=== PATIENT | female | born 1965 | race African-American/Black ===

== ENCOUNTER 2020-05-31 14:23 | Inpatient (IN) | payer MEDICAID ==
[~2020-05-31] VITALS: Ht 165.1 cm; Wt 110.9 kg
[~2020-05-31 14:23] MED LIST: FOLI-43 PO; HYDROCLOROTHIAZIDE PO; IBUP-779 PO; LISI10TA5 PO; NAP5EC PO; [UNRECOGNIZED DRUG - CODE]
[2020-05-31] MEDS ORDERED: ACETAMINOPHEN 325MG TABLET PO STA (14:58)
[2020-05-31 15:41] LABS: BASOPHILS % 0.4 % (0.0-2.0); EOSINOPHILS % 0.2 % (0.0-5.0); HEMATOCRIT. 42.6 % (36.0-48.0); HEMOGLOBIN. 14.6 g/dL (12.0-16.0); LYMPHOCYTES % 20.6 % (20.0-50.0); MEAN CORPUSCULAR HEMOGLOBIN 30.5 pg (28.0-32.0); MEAN CORPUSCULAR VOLUME 89.2 fL (81.0-99.0); MEAN PLATELET VOLUME 9.3 fl (7.4-10.4); MONOCYTES % 7.2 % (2.0-8.0); NEUTROPHILS % 71.6 % (40.0-76.0); PLATELET 207 x1000/uL (130-400); RED BLOOD CELL COUNT 4.77 mill/uL (4.2-5.4); RED CELL DISTRIBUTION WIDTH 13.9 % (11.6-14.6)
[2020-05-31 15:52] LABS: CHLORIDE 104 mEq/L (98-107)
[2020-05-31] MEDS ORDERED: ENOXAPARIN 100MG/ML SYR SUBCUT ONE (16:00)
[2020-05-31] MEDS ORDERED: PIPERACILLIN/TAZ 3.375G PREMIX 50 ML IV ONE (16:00)
[2020-05-31 16:02] LABS: D-DIMER 0.6 mg/L FEU (<0.50); PROTHROMBIN TIME 10.7 sec (9.6-11.0)
[2020-05-31] MEDS ORDERED: POTASSIUM CHLORIDE 20MEQ TABLET SR PO ONE (17:00)
[2020-05-31] MEDS ORDERED: AZITHROMYCIN 500 MG TABLET PO NR (19:15)
[2020-05-31] MEDS ORDERED: CEFTRIAXONE 1 G PREMIX 50 ML IV SCH (19:15)
[2020-05-31] MEDS ORDERED: ONDANSETRON HCL 4MG/2ML INJ IV PRN (19:15)
[2020-05-31] MEDS ORDERED: BENZONATATE 100MG CAPSULE PO PRN (19:15)
[2020-05-31] MEDS: DEXAMETHASONE 4MG TABLET PO SCH (20:00)
[2020-05-31 21:22] VITALS: BP 161/108
[2020-05-31 21:25] VITALS: BP 148/93
[2020-05-31] MEDS ORDERED: IOHEXOL-350 100 ML BOTTLE ONE (23:21)
[2020-06-01 00:05] VITALS: BP 138/86
[2020-06-01 04:00] VITALS: BP 148/93
[2020-06-01] MEDS: ACETAMINOPHEN 325MG TABLET PO PRN ×2 (05:29→20:22)
[2020-06-01] MEDS ORDERED: ENOXAPARIN 120MG/0.8ML SYR SUBCUT SCH (06:00)
[2020-06-01 08:00] VITALS: BP 166/98
[2020-06-01] MEDS: DEXAMETHASONE 4MG TABLET PO SCH (08:39)
[2020-06-01] MEDS: AZITHROMYCIN 250 MG TABLET PO SCH (08:39)
[2020-06-01] MEDS: CLONIDINE 0.1MG TABLET PO PRN (09:18)
[2020-06-01 12:00] VITALS: BP 118/66
[2020-06-01] MEDS: CEFTRIAXONE 1,000 MG in DEXTROSE 5% WATER 50 ML IV SCH (12:41)
[2020-06-01 16:00] VITALS: BP 140/89
[2020-06-01] MEDS: AMLODIPINE 10MG TABLET PO SCH (18:19)
[2020-06-01 20:00] VITALS: BP 131/77
[2020-06-01] MEDS: ENOXAPARIN 100MG/ML SYR SUBCUT SCH (20:22)
[2020-06-02] VITALS: BP 98/72
[2020-06-02 04:00] VITALS: BP 114/62
[2020-06-02 08:00] VITALS: BP 100/51
[2020-06-02] MEDS: AZITHROMYCIN 250 MG TABLET PO SCH (08:24)
[2020-06-02] MEDS: DEXAMETHASONE 4MG TABLET PO SCH (08:24)
[2020-06-02] MEDS: CEFTRIAXONE 1,000 MG in DEXTROSE 5% WATER 50 ML IV SCH (08:24)
[2020-06-02] MEDS: ENOXAPARIN 100MG/ML SYR SUBCUT SCH ×2 (08:24→21:34)
[2020-06-02] MEDS: AMLODIPINE 10MG TABLET PO SCH (09:00)
[2020-06-02 12:00] VITALS: BP 119/69
[2020-06-02 16:00] VITALS: BP_SYST 107; BP_SYST 167; BP_DIAS 53
[2020-06-02] MEDS: CLONIDINE 0.1MG TABLET PO PRN (17:15)
[2020-06-02 20:00] VITALS: BP 124/75
[2020-06-02 20:36] LABS: BASOPHILS % 0.1 % (0.0-2.0); HEMATOCRIT. 41.9 % (36.0-48.0); HEMOGLOBIN. 14.1 g/dL (12.0-16.0); LYMPHOCYTES % 9.6 % (20.0-50.0); MEAN CORPUSCULAR HEMOGLOBIN 30.3 pg (28.0-32.0); MEAN CORPUSCULAR VOLUME 90.1 fL (81.0-99.0); MEAN PLATELET VOLUME 9.5 fl (7.4-10.4); MONOCYTES % 4.3 % (2.0-8.0); PLATELET 314 x1000/uL (130-400); RED BLOOD CELL COUNT 4.65 mill/uL (4.2-5.4); RED CELL DISTRIBUTION WIDTH 13.7 % (11.6-14.6)
[2020-06-02 20:42] LABS: CHLORIDE 103 mEq/L (98-107)
[2020-06-03] VITALS: BP 120/63
[2020-06-03 04:00] VITALS: BP 141/76
[2020-06-03 08:00] VITALS: BP 129/73
[2020-06-03] MEDS: AZITHROMYCIN 250 MG TABLET PO SCH (08:26)
[2020-06-03] MEDS: CEFTRIAXONE 1,000 MG in DEXTROSE 5% WATER 50 ML IV SCH (08:26)
[2020-06-03] MEDS: ENOXAPARIN 100MG/ML SYR SUBCUT SCH ×2 (08:26→21:00)
[2020-06-03] MEDS: DEXAMETHASONE 4MG TABLET PO SCH (08:26)
[2020-06-03] MEDS: AMLODIPINE 5MG TABLET PO SCH (08:26)
[2020-06-03 12:00] VITALS: BP 130/88
[2020-06-03 16:00] VITALS: BP 115/61
[2020-06-03 20:00] VITALS: BP 110/58
[2020-06-04] VITALS (7 sets, daily range): BP systolic 92–141; BP diastolic 52–82
[2020-06-04] MEDS: ACETAMINOPHEN 325MG TABLET PO PRN (05:18)
[2020-06-04] MEDS: AMLODIPINE 5MG TABLET PO SCH (09:00)
[2020-06-04] MEDS: AZITHROMYCIN 250 MG TABLET PO SCH (09:11)
[2020-06-04] MEDS: DEXAMETHASONE 4MG TABLET PO SCH (09:11)
[2020-06-04] MEDS: ENOXAPARIN 100MG/ML SYR SUBCUT SCH (09:11)
[2020-06-04] MEDS: CEFTRIAXONE 1,000 MG in DEXTROSE 5% WATER 50 ML IV SCH (09:12)
[2020-06-05] MEDS ORDERED: DEXAMETHASONE 4MG TABLET PO SCH (09:00)
== END 2020-06-04 19:40 | disposition home or self-care (01) | DRG 720 ==
LOC: ER 14:23 → 7WST 16:48 → EDBEDREQ 17:07 → ENRESERV 20:30
PROVIDERS: ADMIT Internal Medicine; ATTEND Internal Medicine
DX: A41.89 Other specified sepsis (principal); U07.1 COVID-19; J96.01 Acute respiratory failure with hypoxia; E43 Unspecified severe protein-calorie malnutrition; J12.89 Other viral pneumonia; E66.9 Obesity, unspecified; Z68.41 Body mass index [BMI] 40.0-44.9, adult; E87.6 Hypokalemia; I10 Essential (primary) hypertension; L40.50 Arthropathic psoriasis, unspecified; D68.59 Other primary thrombophilia; R51 Headache; H53.8 Other visual disturbances; R07.9 Chest pain, unspecified; F19.10 Other psychoactive substance abuse, uncomplicated; L40.0 Psoriasis vulgaris; D63.1 Anemia in chronic kidney disease; N18.6 End stage renal disease; R74.0 Nonspecific elevation of levels of transaminase and lactic acid dehydrogenase [LDH]; M54.30 Sciatica, unspecified side; I12.0 Hypertensive chronic kidney disease with stage 5 chronic kidney disease or end stage renal disease; Z99.2 Dependence on renal dialysis; Z79.52 Long term (current) use of systemic steroids
CPT/HCPCS: 36415; 71045; 71275; 80048; 80053; 82728; 83605; 83880; 84145; 84484; 85025; 85379; 85384; 93005; 96365; 99291; J0696; J1650; J2543; J7060; J8540; Q9967; U0003-CS